=== PATIENT | female | born 1985 | race Caucasian/White ===

== ENCOUNTER 2016-05-18 23:52 | Emergency (ER) | payer BC ==
[2016-05-18 23:59] VITALS: BP 106/67
--- NOTE | 2016-05-19 00:19 | ED ---
Lower Extremity - HPI Summary HPI Summary: 31 F w/no PMH presents with coccyx pain since Thursday. She was sledding when her sled when over a stake and it when through the sled and up between her butt cheeks. She denies any bleeding. She admits to ecchmyosis. She states she had a previous hemorrhoid that was resolving and was concerned that was hit with the stake. She has had a normal nonbloody BM today. she denies any other trauma. - History of Current Complaint Chief Complaint: EDBackInjuryPain Stated Complaint: TAIL BONE PAIN, Time Seen by Provider: 05/19/16 00:11 Hx Last Menstrual Period: 07/05/12 Pain Intensity: 7 - Allergies/Home Medications Allergies/Adverse Reactions: Allergies Allergy/AdvReac Type Severity Reaction Status Date / Time No Known Allergies Allergy Verified 08/03/12 21:04 PMH/Surg Hx/FS Hx/Imm Hx Endocrine/Hematology History: Denies: Hx Diabetes Cardiovascular History: Denies: Hx Hypertension History: Reports: Hx Kidney Infection, Other Problems/Disorders - frequent UTI's, urethral stretching in 2014 - Surgical History Surgery Procedure, Year, and Place: Tonsillectomy Infectious Disease History: No Infectious Disease History: Denies: Traveled Outside the [place] in Last 30 Days - Family History Known Family History: Negative: Cardiac Disease - Social History Alcohol Use: Occasionally Substance Use Type: Reports: None Smoking Status (MU): Never Smoked Tobacco Have You Smoked in the Last Year: No Review of Systems Negative: Fever Negative: Chest Pain Negative: Shortness Of Breath Positive: Myalgia - coccyx pain All Other Systems Reviewed And Are Negative: Yes Physical Exam Triage Information Reviewed: Yes Vital Signs On Initial Exam: Initial Vitals Temp Pulse Resp BP Pulse Ox 97.9 F 65 16 106/67 100 05/18/16 23:54 05/18/16 23:54 05/18/16 23:54 05/18/16 23:54 05/18/16 23:54 Vital Signs Reviewed: Yes Appearance: Positive: Well-Appearing Skin: Positive: Warm, Dry Head/Face: Positive: Normal Head/Face Inspection Eyes: Positive: Normal, Conjunctiva Clear ENT: Positive: Normal ENT inspection, Pharynx normal, TMs normal Respiratory/Lung Sounds: Positive: Clear to Auscultation, Breath Sounds Present Cardiovascular: Positive: Normal, RRR Abdomen Description: Positive: Nontender, Soft, Other: - no hemorrhoid noted on external exam of rectum, no blood present, large ecchymosis noted in between butt cheeks Bowel Sounds: Positive: Present Diagnostics - Vital Signs Vital Signs Temp Pulse Resp BP Pulse Ox 05/18/16 23:54 97.9 F 65 16 106/67 100 - Laboratory Lab Statement: Any lab studies that have been ordered have been reviewed, and results considered in the medical decision making process. - Radiology coccyx Xray Interpretation: Positive (See Comments) - nondisplaced fracture of distal end of coccyx Radiology Interpretation Completed By: ED Physician Lower Extremity Course/Dx - Course Course Of Treatment: 31 F presents with coocyx pain s/p stake went through sled and between butt cheeks. She denies any bleeding and has had a normal BM. on exam a large area of eccyhmosis noted in between butt cheeks without any evidence of bleeding, ordered xray and dr loya read it as coccyx fracture, will treat with NSAIDS, inc fiber, and doughnut pillow, patient agrees with plan - Diagnoses Differential Diagnosis/HQI/PQRI: Positive: Contusion, Fracture (Closed), Sprain Provider Diagnoses: Fracture of coccyx Discharge - Discharge Plan Condition: Good Disposition: HOME Patient Education Materials: Coccyx Injury (ED) Referrals: Selam Ledezma NP [Primary Care Provider] - Additional Instructions: Take ibuprofen or Tylenol for pain every 6 hours as needed Buy and sit on a doughnut cushion to avoid putting pressure on area Increase fiber in diet Follow up with primary care physician in a week Return to ED if develop blood in stool or any new or worsening symptoms
[2016-05-19] MEDS ORDERED: Ibuprofen TAB* 600 MG PO ONE (00:26)
--- NOTE | 2016-05-19 07:49 | RAD ---
Indication: Traumatic injury to tailbone Comparison: None. Technique: AP and lateral views sacrum and coccyx. Report: Depicted best on the lateral view image of the sacrum and coccyx there is a minimally displaced fracture involving the distal tip of the coccyx. Remaining visualized bones are intact and properly aligned. IMPRESSION: Minimally displaced distal coccyx fracture.
== END 2016-05-19 01:12 | disposition home or self-care (01) ==
LOC: ED 23:52
DX: S32.2XXA Fracture of coccyx, initial encounter for closed fracture (principal); M53.3 Sacrococcygeal disorders, not elsewhere classified; R58 Hemorrhage, not elsewhere classified; M79.1 Myalgia; W22.8XXA Striking against or struck by other objects, initial encounter; Y93.23 Activity, snow (alpine) (downhill) skiing, snowboarding, sledding, tobogganing and snow tubing; Y92.9 Unspecified place or not applicable; Y99.9 Unspecified external cause status
CPT/HCPCS: 72220; 99281; A9270-GY

== ENCOUNTER 2019-04-02 19:51 | Emergency (ER) | payer BC ==
[2019-04-02 20:28] LABS: ABS Eosinophils 0.2 10^3/ul (0-0.6); ABS Lymphocytes 1.7 10^3/ul (1.0-4.8); ABS Monocytes 0.6 10^3/ul (0-0.8); ABS Neutrophils 6.2 10^3/ul (1.5-7.7); Eosinophil % 2.3 %; Hematocrit 38 % (35-47); Hemoglobin 13.6 g/dL (12.0-16.0); Lymphocyte % 19.4 %; Mean Corpuscular HGB Conc 36 g/dL (31-36); Mean Corpuscular Hemoglobin 31 pg (27-31); Mean Corpuscular Volume 88 fL (80-97); Mean Platelet Volume 7.8 fL (7.4-10.4); Platelet Count 242 10^3/uL (150-450); Red Blood Count 4.34 10^6 /uL (3.70-4.87); Red Cell Distribution Width 12 % (10-15); White Blood Count 8.7 10^3/uL (3.5-10.8)
[2019-04-02] MEDS ORDERED: Ondansetron ODT TAB* 4 MG PO ONE (20:28)
--- NOTE | 2019-04-02 20:29 | ED ---
Abdominal Pain/Female - HPI Summary HPI Summary: Patient complains of right flank pain, intermittent left flank pain, intermittent diffuse abdominal pain, nausea 1 week. Also complains of new onset vaginal odor today without symptoms of discharge, bleeding or vaginal pain. Patient has a history of recurrent kidney infections, saw urologist Dr. Keen yesterday, had a negative renal ultrasound, but had some bacteria in her urine and was started on Augmentin yesterday. Right flank pain described as an ache, constant, worse in evening. Abdominal pain described as very mild, diffuse, intermittent. Patient denies any urinary symptoms. Denies fever, cough, sore throat, CP, SOB, V/D, change in urine, change in BM. Medical history is none. Abdominal surgical history is none. No history of kidney stones or ovarian cysts. Patient is on Mirena, LMP years ago. - History of Current Complaint Chief Complaint: EDAbdPain Stated Complaint: NAUSEA, KIDNEY INFECTION, NUMBNESS IN FACE PER PT Time Seen by Provider: 04/02/19 20:03 Hx Obtained From: Patient Hx Last Menstrual Period: 07/05/12 Onset/Duration: Gradual Onset, Lasting Days Timing: Intermittent Episode Lasting Severity Initially: Moderate Severity Currently: Moderate Pain Intensity: 7 Pain Scale Used: 0-10 Numeric Location: Diffuse Aggravating Factor(s): Nothing Alleviating Factor(s): Nothing Associated Signs and Symptoms: Positive: Nausea Allergies/Adverse Reactions: Allergies Allergy/AdvReac Type Severity Reaction Status Date / Time No Known Allergies Allergy Verified 08/03/12 21:04 PMH/Surg Hx/FS Hx/Imm Hx Endocrine/Hematology History: Denies: Hx Diabetes Cardiovascular History: Denies: Hx Hypertension History: Reports: Hx Kidney Infection, Other Problems/Disorders - frequent UTI's, urethral stretching in 2015 Sensory History: Denies: Hx Eye Prosthesis Opthamlomology History: Denies: Hx Legally Blind EENT History: Denies: Hx Deafness Neurological History: Denies: Hx Dementia - Surgical History Surgery Procedure, Year, and Place: Tonsillectomy Infectious Disease History: No Infectious Disease History: Denies: Traveled Outside the [place] in Last 30 Days - Family History Known Family History: Negative: Cardiac Disease - Social History Alcohol Use: Occasionally Substance Use Type: Reports: None Smoking Status (MU): Never Smoked Tobacco Have You Smoked in the Last Year: No Review of Systems Constitutional: Negative Eyes: Negative ENT: Negative Cardiovascular: Negative Respiratory: Negative Positive: Abdominal Pain, Nausea Genitourinary: Negative Positive: flank pain Musculoskeletal: Negative Skin: Negative Neurological: Negative Psychological: Normal All Other Systems Reviewed And Are Negative: Yes Physical Exam - Summary Physical Exam Summary: Abdomen soft nontender. No CVA tenderness bilaterally. Triage Information Reviewed: Yes Vital Signs On Initial Exam: Initial Vitals Temp Pulse Resp BP Pulse Ox 96.2 F 61 18 120/78 100 04/02/19 19:56 04/02/19 19:56 04/02/19 19:56 04/02/19 19:56 04/02/19 19:56 Vital Signs Reviewed: Yes Appearance: Positive: Well-Appearing Skin: Positive: Warm Head/Face: Positive: Normal Head/Face Inspection Eyes: Positive: Normal ENT: Positive: Normal ENT inspection Neck: Positive: Supple Respiratory/Lung Sounds: Positive: Clear to Auscultation Cardiovascular: Positive: Normal Abdomen Description: Positive: Nontender Musculoskeletal: Positive: Normal Neurological: Positive: Normal Psychiatric: Positive: Normal AVPU Assessment: Alert - [place] Coma Scale Best Eye Response: 4 - Spontaneous Best Motor Response: 6 - Obeys Commands Best Verbal Response: 5 - Oriented Coma Scale Total: 15 Procedures - Sedation Patient Received Moderate/Deep Sedation with Procedure: No Diagnostics - Vital Signs Vital Signs Temp Pulse Resp BP Pulse Ox 04/02/19 19:56 96.2 F 61 18 120/78 100 - Laboratory Lab Results: Lab Results 04/02/19 Range/Units 20:21 WBC 8.7 (3.5-10.8) 10^3/uL RBC 4.34 (3.70-4.87) 10^6 /uL Hgb 13.6 (12.0-16.0) g/dL Hct 38 (35-47) % MCV 88 (80-97) fL MCH 31 (27-31) pg MCHC 36 (31-36) g/dL RDW 12 (10-15) % Plt Count 242 (150-450) 10^3/uL MPV 7.8 (7.4-10.4) fL Neut % (Auto) 71.4 % Lymph % (Auto) 19.4 % Lee % (Auto) 6.6 % Eos % (Auto) 2.3 % Baso % (Auto) 0.3 % Absolute Neuts (auto) 6.2 (1.5-7.7) 10^3/ul Absolute Lymphs (auto) 1.7 (1.0-4.8) 10^3/ul Absolute Monos (auto) 0.6 (0-0.8) 10^3/ul Absolute Eos (auto) 0.2 (0-0.6) 10^3/ul Absolute Basos (auto) 0.0 (0-0.2) 10^3/ul Absolute Nucleated RBC 0.0 10^3/ul Nucleated RBC % 0.0 Result Diagrams: 04/02/19 20:21 04/02/19 20:21 Lab Statement: Any lab studies that have been ordered have been reviewed, and results considered in the medical decision making process. Abdominal Pain Fem Course/Dx - Course Course Of Treatment: Patient complains of right flank pain, intermittent left flank pain, intermittent diffuse abdominal pain, nausea 1 week. Also complains of new onset vaginal odor today without symptoms of discharge, bleeding or vaginal pain. Patient has a history of recurrent kidney infections , saw urologist Dr. Keen yesterday, had a negative renal ultrasound, but had some bacteria in her urine and was started on Augmentin yesterday. Right flank pain described as an ache, constant, worse in evening. Abdominal pain described as very mild, diffuse, intermittent. Patient denies any urinary symptoms. Denies fever, cough, sore throat, CP, SOB, V/D, change in urine, change in BM. Medical history is none. Abdominal surgical history is none. No history of kidney stones or ovarian cysts. Patient is on Mirena, LMP years ago. Vital signs within normal limits. Labs unremarkable. Renal ultrasound negative. Patient states pain is self resolving during her stay here in the ED. Patient deferred pelvic exam at this time will follow-up with [facility]. Deferred CAT scan of abdomen and pelvis at this time, states she will return for worsening symptoms. - Diagnoses Provider Diagnoses: Flank pain Discharge ED - Sign-Out/Discharge Documenting (check all that apply): Patient Departure - Discharge Plan Condition: Stable Disposition: HOME Patient Education Materials: Flank Pain (ED) Referrals: Selam Ledezma NP [Primary Care Provider] - Additional Instructions: Follow-up with primary care or [facility] for pelvic examination. Return to the ED for any new or worsening symptoms. - Billing Disposition and Condition Condition: STABLE Disposition: Home
[2019-04-02 20:46] LABS: ALT 9 U/L (7-52); AST 15 U/L (13-39); Albumin 4.3 g/dL (3.2-5.2); Albumin/Globulin Ratio 1.5 (1-3); Alkaline Phosphatase 57 U/L (34-104); Anion Gap 5 mmol/L (2-11); BUN/Creatinine Ratio 15.5 (8-20); Blood Urea Nitrogen 13 mg/dL (6-24); C Reactive Protein < 1.00 mg/L (<8.01); CO2 Carbon Dioxide 25 mmol/L (22-32); Calcium 9.5 mg/dL (8.6-10.3); Chloride 106 mmol/L (101-111); EGFR African American 93.4 (>60); EGFR Non-African American 77.2 (>60); Globulin 2.8 g/dL (2-4); Glucose 109 mg/dL (70-100); Potassium 3.9 mmol/L (3.5-5.0); Sodium 136 mmol/L (135-145); Total Protein 7.1 g/dL (6.4-8.9)
[2019-04-02 20:52] LABS: HCG Pregnancy < 0.60 mIU/mL
[2019-04-02 20:54] LABS: Urine Appearance Clear; Urine Color Yellow; Urine Ketones Negative (Negative); Urine Protein Negative (Negative); Urine Urobilinogen Negative (Negative)
[2019-04-02 20:55] LABS: Urine Bacteria Absent (Absent); Urine Bilirubin Negative (Negative); Urine Blood Negative (Negative); Urine Glucose Negative (Negative); Urine Nitrite Negative (Negative); Urine Red Blood Cell Absent (Absent); Urine White Blood Cell Trace(0-5/hpf) (Absent)
[2019-04-02 22:14] VITALS: BP 120/62
== END 2019-04-02 22:00 | disposition home or self-care (01) ==
LOC: ED 19:51
DX: R10.84 Generalized abdominal pain (principal); R11.0 Nausea; Z87.440 Personal history of urinary (tract) infections; Z97.5 Presence of (intrauterine) contraceptive device
CPT/HCPCS: 36415; 76775; 80053; 81003; 83690; 84702; 85025; 86140; 87086; 99282; A9270-GY